=== PATIENT | female | born 1935 | race Caucasian/White ===

== ENCOUNTER 2017-10-19 11:43 | Inpatient (IN) | payer MEDICARE, OTHER ==
[~2017-10-19] VITALS: Ht 147.3 cm; Wt 73.9 kg
[2017-10-19 12:18] LABS: BASOPHILS % (AUTO) 0.6 % (0-1); EOSINOPHILS # (AUTO) 0.1 X10'3 (0-0.9); EOSINOPHILS % (AUTO) 1.8 % (0-6); HEMATOCRIT 40.8 % (35.0-45.0); HEMOGLOBIN 13.6 g/dl (12.0-16.0); LYMPHOCYTES # (AUTO) 2.1 X10'3 (1.1-4.8); LYMPHOCYTES % (AUTO) 25.2 % (21-51); MEAN CORPUSCULAR HEMOGLOBIN 28.7 PG (27.0-31.0); MEAN CORPUSCULAR HGB CONC 33.3 % (33.0-36.5); MEAN CORPUSCULAR VOLUME 86.2 FL (78-98); MEAN PLATELET VOLUME 8.7 FL (7.4-10.4); MONOCYTES # (AUTO) 0.3 X10'3 (0-0.9); MONOCYTES % (AUTO) 3.9 % (2-12); NEUTROPHILS # (AUTO) 5.7 X10'3 (1.8-7.7); NEUTROPHILS % (AUTO) 68.5 % (42-75); PLATELET COUNT 289 X10'3 (140-440); RED BLOOD COUNT 4.73 X10'6 (4.20-5.60); RED CELL DISTRIBUTION WIDTH 14.9 % (11.5-14.5); WHITE BLOOD COUNT 8.4 X10'3 (4.5-11.0)
[2017-10-19 12:34] LABS: ALANINE AMINOTRANSFERASE 13 U/L (12-78); ALBUMIN 3.4 G/DL (3.4-5.0); ALBUMIN/GLOBULIN RATIO 0.8 (1.1-1.5); ALKALINE PHOSPHATASE 105 IU/L (46-116); ANION GAP 13 (8-16); ASPARTATE AMINO TRANSFERASE 12 U/L (10-37); BILIRUBIN,TOTAL 0.3 MG/DL (0.1-1.0); BLOOD UREA NITROGEN 12 MG/DL (7-18); BUN/CREATININE RATIO 9.2 (6.6-38.0); CALCIUM 8.7 MG/DL (8.5-10.1); CHLORIDE 108 MMOL/L (99-107); CREATININE 1.31 MG/DL (0.40-0.90); GLUCOSE 163 MG/DL (70-104); POTASSIUM 3.5 MMOL/L (3.5-5.1); SODIUM 145 MMOL/L (135-145); TOTAL CARBON DIOXIDE 24.2 MMOL/L (24-32); TOTAL PROTEIN 7.8 G/DL (6.4-8.2); eGFR 39 ML/MIN
[2017-10-19 12:38] LABS: TROPONIN I 0.11 NG/ML (0.0-0.05)
[2017-10-19 12:44] LABS: PARTIAL THROMBOPLASTIN TIME 27 SECONDS (22-32); PROTHROMBIN TIME 10.7 SECONDS (9.0-12.0)
[2017-10-19 14:02] LABS: HEMOGLOBIN A1C 5.6 % (4.5-6.2)
[2017-10-19] MEDS ORDERED: DONE10TA6 PO (14:22)
[2017-10-19] MEDS: normal saline 1000ml 1,000 ML IV SCH ×2 (14:24→14:50)
[2017-10-19 14:53] LABS: CLARITY,URINE CLOUDY (Clear); COLOR,URINE YELLOW (Yellow); GLUCOSE, URINE NEGATIVE (Neg); KETONES,URINE NEGATIVE (Neg); LEUKOCYTE ESTERASE ,URINE NEGATIVE (Neg); NITRITES, URINE NEGATIVE (Neg); OCCULT BLOOD,URINE NEGATIVE (Neg); PROTEIN,URINE 30 mg/dl (Neg); UROBILINOGEN,URINE 0.2 E.U/dL (0.2-1.0)
[2017-10-19 14:54] LABS: UA COLLECTION TYPE STRAIGHT CATH
[2017-10-19] MEDS: aspirin 81mg tablet.DR PO SCH (15:00)
[2017-10-19 15:02] LABS: HYALINE CASTS 0-3 /LPF (NEGATIVE); MUCUS STRANDS MODERATE /LPF (Neg); SQUAMOUS EPITHELIAL CELL,UR MODERATE /LPF (FEW)
[2017-10-19 15:03] LABS: BACTERIA,URINE 1+ /HPF (Neg); RBC,URINE 0-2 /HPF (0-2); WBC,URINE 0-4 /HPF (0-4)
[2017-10-19 17:35] VITALS: BP 178/81
[2017-10-19] MEDS: phenazopyridine 100mg tablet PO SCH (20:07)
[2017-10-19] MEDS: donepezil 5mg tablet PO SCH (20:07)
[2017-10-19 21:15] VITALS: BP_SYST 191; BP_SYST 229; BP_DIAS 185; BP_DIAS 98
[2017-10-20] VITALS (7 sets, daily range): BP systolic 122–202; BP diastolic 71–124
[2017-10-20] MEDS: acetaminophen 325mg tablet PO PRN (03:00)
[2017-10-20] MEDS: phenazopyridine 100mg tablet PO SCH ×3 (07:54→17:35)
[2017-10-20] MEDS: aspirin 81mg tablet.DR PO SCH (07:54)
[2017-10-20] MEDS: enoxaparin 40mg/0.4ml syringe SQ SCH (07:54)
[2017-10-20] MEDS ORDERED: aspirin 81mg tablet.DR PO SCH (08:00)
[2017-10-20 09:44] LABS: CHOL/HDL RATIO 5.6 (0.00-4.99); CHOLESTEROL 240 MG/DL (0-200); HDL CHOLESTEROL 43 MG/DL (35-60); LDL CHOLESTEROL 178 MG/DL (50-100); TRIGLYCERIDES 118 MG/DL (20-135)
[2017-10-20] MEDS: donepezil 5mg tablet PO SCH (20:20)
[2017-10-20] MEDS ORDERED: hydrALAZINE 20mg/ml inj. IV PRN (23:00)
[2017-10-20] MEDS: hyDRALAzine 10mg tablet PO PRN (23:36)
[2017-10-21] VITALS (10 sets, daily range): BP systolic 120–192; BP diastolic 55–94
[2017-10-21] MEDS: aspirin 81mg tablet.DR PO SCH (07:50)
[2017-10-21] MEDS: atorvastatin 20mg tablet PO SCH (07:50)
[2017-10-21] MEDS: phenazopyridine 100mg tablet PO SCH ×3 (07:50→18:00)
[2017-10-21] MEDS: enoxaparin 40mg/0.4ml syringe SQ SCH (07:52)
[2017-10-21] MEDS: acetaminophen 325mg tablet PO PRN ×2 (07:53→14:41)
[2017-10-21] MEDS: lisinopril 20mg tablet PO SCH (09:15)
[2017-10-21] MEDS: hyDRALAzine 10mg tablet PO PRN (11:12)
[2017-10-21] MEDS ORDERED: ibuprofen tablet 400 MG TABLET PO PRN (16:25)
[2017-10-21] MEDS: donepezil 5mg tablet PO SCH (20:03)
[2017-10-21] MEDS ORDERED: haloperidol lactate 5mg/ml inj IM ONE (21:45)
[2017-10-22 07:30] VITALS: BP 150/68
[2017-10-22] MEDS: aspirin 81mg tablet.DR PO SCH (08:00)
[2017-10-22] MEDS: atorvastatin 20mg tablet PO SCH (08:19)
[2017-10-22] MEDS: phenazopyridine 100mg tablet PO SCH ×3 (08:20→17:56)
[2017-10-22] MEDS: lisinopril 20mg tablet PO SCH (08:20)
[2017-10-22] MEDS: enoxaparin 40mg/0.4ml syringe SQ SCH (08:20)
[2017-10-22] MEDS: aspirin 325mg tablet PO SCH (08:20)
[2017-10-22 10:00] VITALS: BP 167/65
[2017-10-22 18:00] VITALS: BP 155/87
[2017-10-22] MEDS: donepezil 5mg tablet PO SCH (19:46)
[2017-10-22 22:00] VITALS: BP 124/60
[2017-10-23 05:00] VITALS: BP 150/69
[2017-10-23] MEDS: aspirin 81mg tablet.DR PO SCH (08:00)
[2017-10-23] MEDS: atorvastatin 20mg tablet PO SCH (08:34)
[2017-10-23] MEDS: lisinopril 20mg tablet PO SCH (08:34)
[2017-10-23] MEDS: phenazopyridine 100mg tablet PO SCH ×2 (08:34→12:37)
[2017-10-23] MEDS: acetaminophen 325mg tablet PO PRN (08:34)
[2017-10-23] MEDS: aspirin 325mg tablet PO SCH (08:34)
[2017-10-23] MEDS: enoxaparin 40mg/0.4ml syringe SQ SCH (08:35)
[2017-10-23 10:00] VITALS: BP 108/64
== END 2017-10-23 14:30 | DRG 64 ==
LOC: ER 11:44 → ED HOLD 13:12 → OBSVTOIN 13:12 → ORTHO 4S 17:19
PROVIDERS: ADMIT Family Medicine; ATTEND Family Medicine
DX: I63.9 Cerebral infarction, unspecified (principal); G93.40 Encephalopathy, unspecified; F05 Delirium due to known physiological condition; H54.7 Unspecified visual loss; N18.3 Chronic kidney disease, stage 3 (moderate); E78.5 Hyperlipidemia, unspecified; R74.8 Abnormal levels of other serum enzymes; F02.80 Dementia in other diseases classified elsewhere, unspecified severity, without behavioral disturbance, psychotic disturbance, mood disturbance, and anxiety; G30.9 Alzheimer's disease, unspecified; I08.0 Rheumatic disorders of both mitral and aortic valves; I12.9 Hypertensive chronic kidney disease with stage 1 through stage 4 chronic kidney disease, or unspecified chronic kidney disease; F17.200 Nicotine dependence, unspecified, uncomplicated; Z90.710 Acquired absence of both cervix and uterus; Z79.82 Long term (current) use of aspirin
CPT/HCPCS: 36415; 70450; 71045; 80053; 80061; 81001; 83036; 84484; 85025; 85610; 85651; 85730; 87070; 92616; 93005; 93306; 93880; 97110; 97116; 97161; 99285; A4353; J1630; J1650; J7030